=== PATIENT | male | born 1985 | race Caucasian/White ===

== ENCOUNTER 2018-02-18 16:46 | Emergency (ER) | payer BC ==
[2018-02-18] MEDS ORDERED: NS 0.9% 1000 ML* 1,000 ML IV ONE (17:08)
--- NOTE | 2018-02-18 17:14 | ED ---
Neurological HPI - HPI Summary HPI Summary: This is Taj Sullivan, documenting for attending Aj Lira MD. Pt is a 32 y/o M who presents to the ED for weakness of left eyelid. 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 He started seeing Dr. Danielson last week for his blackouts that have been happening for approximately 15 years. The blackout episodes do not cause him to fall or trip. Notes that left side of forehead is flat. Doesnt take any medications. Smokes a pack a week. Drinks a 6 pack a week. Last year he was bit by several ticks, but claims he hasnt been bit this year. - History of Current Complaint Chief Complaint: EDWeakness Stated Complaint: SYNCOPE/LT EYE WEAKNESS Hx Obtained From: Patient Onset/Duration: Still Present Current Severity: None - 0/10 Pain Intensity: 0 Pain Scale Used: 0-10 Numeric Character: Weak - weakness of left eyelid - Allergy/Home Medications Allergies/Adverse Reactions: Allergies Allergy/AdvReac Type Severity Reaction Status Date / Time No Known Allergies Allergy Verified 06/12/16 19:21 Home Medications: Home Medications NK [No Home Medications Reported] 02/18/18 [History Confirmed 02/18/18] PMH/Surg Hx/FS Hx/Imm Hx Endocrine/Hematology History: Denies: Hx Anticoagulant Therapy, Hx Diabetes, Hx Thyroid Disease Cardiovascular History: Denies: Hx Congestive Heart Failure, Hx Deep Vein Thrombosis, Hx Hypertension , Hx Myocardial Infarction, Hx Pacemaker/ICD Respiratory History: Denies: Hx Asthma, Hx Chronic Obstructive Pulmonary Disease (COPD), Hx Lung Cancer, Hx Pneumonia, Hx Pulmonary Embolism GI History: Denies: Hx Gall Bladder Disease, Hx Gastrointestinal Bleed, Hx Ulcer, Hx Urosepsis History: Denies: Hx Kidney Stones, Hx Renal Disease Neurological History: Denies: Hx Dementia, Hx Migraine, Hx Seizures, Hx Transient Ischemic Attacks (TIA) Psychiatric History: Denies: Hx Anxiety, Hx Depression, Hx Schizophrenia, Hx Bipolar Disorder Infectious Disease History: No Infectious Disease History: Denies: Traveled Outside the [place] in Last 30 Days - Family History Known Family History: Positive: Cardiac Disease, Hypertension - Social History Alcohol Use: Occasionally Alcohol Amount: Sunday and Sunday Substance Use Type: Reports: Marijuana Substance Use Comment - Amount & Last Used: occasional use Smoking Status (MU): Heavy Every Day Tobacco Smoker Type: Cigarettes Amount Used/How Often: 1/2 pack daily Review of Systems Positive: Other - weakness of left eyelid Positive: Syncope - has been suffering from blackouts where he "loses time" for 15 years, had 8 episodes just today All Other Systems Reviewed And Are Negative: Yes Physical Exam - Summary Physical Exam Summary: Appearance: Well appearing, no pain distress, flattening of forehead Skin: warm, dry, reflects adequate perfusion Head/face: normal Eyes: EOMI, Ptosis of the left eyelid. ENT: normal Neck: supple, non-tender Respiratory: CTA, breath sounds present Cardiovascular: RRR, pulses symmetrical Abdomen: non-tender, soft Bowel Sounds: present Musculoskeletal: normal, strength/ROM intact Neuro: normal, no facial asymmetry, sensory motor intact, A&Ox3 Triage Information Reviewed: Yes Vital Signs On Initial Exam: Initial Vitals Temp Pulse Resp BP Pulse Ox 99 F 60 16 157/67 99 02/18/18 16:53 02/18/18 16:53 02/18/18 16:53 02/18/18 16:53 02/18/18 16:53 Vital Signs Reviewed: Yes - [place] Coma Scale Best Eye Response: 4 - Spontaneous Best Motor Response: 6 - Obeys Commands Best Verbal Response: 5 - Oriented Coma Scale Total: 15 Diagnostics - Vital Signs Vital Signs Temp Pulse Resp BP Pulse Ox 02/18/18 16:53 99 F 60 16 157/67 99 - Laboratory Result Diagrams: 02/18/18 17:22 02/18/18 17:22 Lab Statement: Any lab studies that have been ordered have been reviewed, and results considered in the medical decision making process. - CT Brain CT CT Interpretation Completed By: Radiologist - Impression: Negative examination. ED Physician reviewed this report. - EKG 17:21 Cardiac Rate: NL - 79 bpm EKG Rhythm: Sinus Rhythm ST Segment: Normal EKG Interpretation: Short NH w/o delta wave, nomal axis NIH Scale - NIH Scale Level of Consciousness: Alert/Keenly Responsive Ask Patient the Month and His/Her Age: Both Correct Ask Pt to Open/Close Eyes and Land Surveyor Assistant/Release Non-Paretic Hand: Both Correctly Best Gaze (Only Horizontal Eye Movement): Normal Visual Field Testing: No Visual Loss Facial Paresis-Pt to Smile & Close Eyes or Grimace Symmetry: Minor Paralysis Motor Function - Right Arm: No Drift-Holds 10 Seconds Motor Function - Left Arm: No Drift-Holds 10 Seconds Motor Function - Right Leg: No Drift-Holds 10 Seconds Motor Function - Left Leg: No Drift-Holds 10 Seconds Limb Ataxia-Must be out of Proportion to Weakness Present: Absent Sensory (Use Pinprick to Test Arms/Legs/Trunk/Face): Normal Best Language (Describe Picture, Name Items): No Aphasia Dysarthria (Read Several Words): Normal Extinction and Inattention: No Abnormality Total Score: 1 Course/Dx - Course Course Of Treatment: Patient with "black out" episodes where he loses time but does not lose consciousness or fall. He also has had minor headache and also now is experiencing some lid lag or ptosis of the left upper lid. There is however flattening of the forehead ridges on that side. There is no smile asymmetry however. He has some dryness of the eye but no anhidrosis or myosis. A CT is negative. Consult was made with neurology who suggested a CT angiogram. She however saw the patient prior and agrees that his exam isn't consistent and likely volitional. His ptosis does not go along with a Ramirez's palsy and he has no other hallmarks of Maggie syndrome. There is no definite third nerve palsy. Neurology evaluated the patient will have him follow-up with his outpatient neurologist for scheduled EEG and MRI. She feels that this is functional. Patient does have a history of PTSD, etc. - Differential Dx Differential Diagnoses Neuro: Positive: Other - Maggie syndrome, Ramirez's palsy, TIA/stroke, conversion disorder - Diagnoses Provider Diagnoses: Headache, Ptosis, Blackout, Conversion disorder - Physician Notifications Discussed Care Of Patient With: Umu Fontana - she is going to see him and wants a CTA Time Discussed With Above Provider: 18:10 Discharge - Sign-Out/Discharge Documenting (check all that apply): Patient Departure - Discharge - Discharge Plan Condition: Improved Disposition: HOME Patient Education Materials: Acute Headache (ED), Ptosis (ED) Referrals: Marbin Danielson MD [Medical Doctor] - Rigoberto Mcgarry MD [Primary Care Provider] - Additional Instructions: Stay well-hydrated. Call Dr. Danielson to follow-up first thing tomorrow. He should have outpatient EEG, MRI as scheduled by Dr. Danielson. Return if worse, new symptoms or other concerns as discussed. - Billing Disposition and Condition Condition: IMPROVED Disposition: Home
--- OUTSIDE RECORDS SUMMARY | 2018-02-18 17:25 | XMS REPORT ---
:1985 External Reference #:[id number] Author Organization [facility] Address [address] [place] [address] Phone [phone] Care Team Providers Name Role Phone Rigoberto Mcgarry MD Primary Care Physician Unavailable Payers Type Date Identification Numbers Payment Provider Subscriber Commercial Policy Number: [id number] [employer] Michelet Dejesus PayID: [id number] [address] [address] [place] [address] Problems Date Description Provider Status Onset: 12/21/2017 Obstructive sleep apnea Sravani Ngo DNP, RN, Active syndrome 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 Active Onset: 02/14/2018 Seizure Enoch Danielson M.D. 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 Cigarette Use current cigarette smoker ETOH Use Currently consumes alcohol Smoking Patient is a current smoker, smokes every day Recreational Drug Use Regularly uses Marijuana Smoking Light tobacco smoker (10 or 1-2 per day fewer cigarettes/day) Daily Caffeine Consumes on average 1 cup of In the morning regular coffee per day Exercise Type/Frequency Exercises regularly Physically demanding job Allergies, Adverse Reactions, Alerts Date Description Reaction Status Severity Comments 10/30/2017 NKDA active Medications Medication Date Status Form Strength Qnty SIG Indications Ordering Provider No Active 10/30/2017 Active Aleyda Medications MD Mack Vital Signs Date Vital Result Comment 02/14/2018 Height 70 inches 5'10" Weight 180.00 lb Heart Rate 76 /min BP Systolic 112 mmHg BP Diastolic 78 mmHg BMI (Body Mass Index) 25.8 kg/m2 12/21/2017 Height 70 inches 5'10" Weight 179.50 lb Heart Rate 60 /min BP Systolic Sitting 114 mmHg Lue reg cuff BP Diastolic Sitting 84 mmHg Lue reg cuff Respiratory Rate 16 /min O2 % BldC Oximetry 98 % On Ra BMI (Body Mass Index) 25.8 kg/m2 10/30/2017 Height 70 inches 5'10" Weight 180.00 lb Heart Rate 72 /min BP Systolic Standing 142 mmHg Rue regular cuff BP Diastolic Standing 90 mmHg Rue regular cuff Respiratory Rate 16 /min O2 % BldC Oximetry 97 % BMI (Body Mass Index) 25.8 kg/m2 Neck Circumference in inches 14.5 Results Description No Information Procedures Date CPT Code Description Status 12/17/2017 98547 Polysomnography Sleep Staging 4+ Parameters Completed Encounters Type Date Location Provider CPT E/M Dx Office Visit 12/21/2017 Pul[facility]ology [facility] Sleep Sravani Ngo, [address] G47.33 8:30a [facility] ROBERT RN, FOOD SERVICE SUPERVISOR-BC G47.53 G47.14 F17.210 Office Visit 10/30/2017 7:30a [facility] [address] G47.9 [facility] G47.50 Plan of Care Future Appointment(s):03/18/2018 4:00 pm - Enoch Danielson M.D. at [facility]02/28/2018 8:00 am - Sravani Ngo DNP, RN, FOOD SERVICE SUPERVISOR- BC at [facility]02/14/2018 - Enoch Danielson M.D.R51 HeadacheFollow up:Follow up 4 weeksRecommendations:Keep a headache huehqrrgY34.33 Obstructive sleep apnea (adult) (pediatric)G47.53 Recurrent isolated sleep netvfjsggY11.9 Unspecified convulsionsNew Orders:EEG, GynucjpM76.0 Cerebral cystsNew Xrays:MRI Brain W/Wo
[2018-02-18 17:31] LABS: ABS Basophils 0 10^3/ul (0-0.2); ABS Eosinophils 0.1 10^3/ul (0-0.6); ABS Lymphocytes 1.3 10^3/ul (1.0-4.8); ABS Monocytes 0.4 10^3/ul (0-0.8); ABS Neutrophils 3.6 10^3/ul (1.5-7.7); ABS Nucleated RBC 0 10^3/ul; Eosinophil % 1.9 % (0-6); Hematocrit 49 % (42-52); Hemoglobin 16.4 g/dl (14.0-18.0); Lymphocyte % 24.4 % (25-47); Mean Corpuscular HGB Conc 34 g/dl (31-36); Mean Corpuscular Hemoglobin 30 pg (27-31); Mean Corpuscular Volume 89 fL (80-94); Mean Platelet Volume 9.1 um3 (7.4-10.4); Nucleated Red Blood Cells % 0.1; Platelet Count 157 10^3/ul (150-450); Red Blood Count 5.49 10^6/ul (4.00-5.40); Red Cell Distribution Width 14 % (10.5-15); White Blood Count 5.5 10^3/ul (3.5-10.8)
--- NOTE | 2018-02-18 17:44 | RAD ---
INDICATION: Ramirez's palsy COMPARISON: None TECHNIQUE: Noncontrast axial source images were acquired from the skull base to the vertex. FINDINGS: Ventricles/sulci: The ventricles and cisterns are normal in size and configuration for age. Brain parenchyma: There is no focal parenchymal finding, evidence of intracranial mass, or intracranial mass effect. Intracranial hemorrhage:None. Extra-axial spaces: There are no abnormal extra axial fluid collections or evidence of extra-axial mass. Calvarium: There is no calvarial fracture or other calvarial abnormality. Scalp: There is no evidence of scalp or extracalvarial soft tissue abnormality. Paranasal sinuses/mastoid: The paranasal sinuses and mastoid air cells are clear. Other: None. IMPRESSION: NEGATIVE EXAMINATION
[2018-02-18 17:49] LABS: EGFR Non-African American 105.8 (>60)
[2018-02-18] MEDS ORDERED: Iohexol 350* (CONTRAST) 500 ML MDV IV ONE (18:22)
[2018-02-18 19:51] VITALS: BP 131/77
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
== END 2018-02-18 19:51 | disposition home or self-care (01) ==
LOC: ED 16:46
DX: H02.402 Unspecified ptosis of left eyelid (principal); R51 Headache; F44.9 Dissociative and conversion disorder, unspecified; F12.10 Cannabis abuse, uncomplicated; F17.210 Nicotine dependence, cigarettes, uncomplicated; Z86.59 Personal history of other mental and behavioral disorders
CPT/HCPCS: 36415; 70450; 80053; 85025; 86140; 86618; 93005; 99282

== ENCOUNTER 2018-03-11 11:12 | Emergency (ER) | payer BC ==
[2018-03-11 11:30] VITALS: BP 137/86
--- NOTE | 2018-03-11 12:09 | UC ---
Upper Extremity HPI - HPI Summary HPI Summary: [facility] is [facility] for attending Den Perkins MD. Pt is a 32 y/o M c/o RUE pain s/p trauma onset ~5 hours ago. Pain rated a 9/10 is localized around the R forearm and elbow, described as achy, sharp and having a warm feeling, per comp. assessment. Assoc. Sx: RUE pain, numbness, tingling, loss of feeling, decreased ROM. Denies: Neck/shoulder pain. He reports being at work where they were cutting a tree when a limb shot out at him. He shielded himself from the flying object with his R arm, in which he obtained R associated Sx above. - History of Current Complaint Chief Complaint: UCUpperExtremity Stated Complaint: R ARM INJURY Time Seen by Provider: 03/11/18 11:49 Hx Obtained From: Patient Onset/Duration: Sudden Onset, Lasting Hours, Still Present Severity Initially: Severe Severity Currently: Severe Pain Intensity: 9 Pain Scale Used: 0-10 Numeric Location Of Pain: Is Diffuse - R forearm/elbow Aggravating Factor(s): Internal/External Rotation Alleviating Factor(s): Nothing Associated Signs And Symptoms: Positive: Swelling - Allergies/Home Medications Allergies/Adverse Reactions: Allergies Allergy/AdvReac Type Severity Reaction Status Date / Time No Known Allergies Allergy Verified 03/11/18 11:25 PMH/Surg Hx/FS Hx/Imm Hx Other Endocrine History: NEG: DM Other Cardiovascular History: NEG: CAD, HTN Other History Of: Negative For: HIV, Hepatitis B, Hepatitis C, Anticoagulant Therapy - Surgical History Surgical History: Yes Surgery Procedure, Year, and Place: WISDOM TEETH - Family History Known Family History: Positive: Cardiac Disease, Other - POS: Hypotension - Social History Occupation: Employed Full-time Lives: With Family Alcohol Use: Occasionally Alcohol Amount: Sunday and Sunday: 6-12 drinks per week Substance Use Type: Marijuana Substance Use Comment - Amount & Last Used: occasional use Smoking Status (MU): Heavy Every Day Tobacco Smoker Type: Cigarettes Amount Used/How Often: 1 pack per week Review of Systems Musculoskeletal: Decreased ROM, Other: - RUE pain Neurological: Weakness - RUE, Numbness - RUE All Other Systems Reviewed And Are Negative: Yes Physical Exam - Summary Physical Exam Summary: General: well-appearing, no pain distress Skin: warm, color reflects adequate perfusion, dry Head: normal Eyes: EOMI, SANCHO ENT: normal Neck: supple, nontender Respiratory: CTA, breath sounds present Cardiovascular: RRR Abdomen: soft, nontender Bowel: present Musculoskeletal: R shoulder HIRA; R elbow decreased ROM, TTP. Elbow clicks with rotation. Has been keeping arm at 90 degree angle. Neurological: sensory/motor intact, A&O x3 Psychological: affect/mood appropriate Triage Information Reviewed: Yes Vital Signs: Initial Vital Signs Temp 98.4 F 03/11/18 11:25 Pulse 78 03/11/18 11:25 Resp 18 03/11/18 11:25 BP 137/86 03/11/18 11:25 Pulse Ox 98 03/11/18 11:25 Vital Signs Reviewed: Yes Diagnostics - Radiology Elbow XR Xray Interpretation: No Acute Changes - IMPRESSION: No fraxture of the elbow noted. Radiology Interpretation Completed By: Radiologist - Report has been reviewed by provider Upper Extremity Course/Dx - Course Course Of Treatment: DISCUSSED X-RAY RESULTS WITH THE PATIENT. DISCUSSED NEED FOR FOLLOW UP IF NOT COMPLETELY IMPROVED. F/U PMD OR ORTHOPEDICS. - Differential Dx/Diagnosis Provider Diagnoses: RIGHT ELBOW CONTUSION Discharge - Sign-Out/Discharge Documenting (check all that apply): Patient Departure - Discharge Plan Condition: Stable Disposition: HOME Prescriptions: HYDROcodone/ACETAMIN 5-325 MG* [[place] 5-325 TAB*] 1 tab PO Q4H PRN #20 tab MDD 6 PRN Reason: Pain Patient Education Materials: Contusion in Adults (ED), Elbow Sprain (ED) Referrals: Michelet Almanza MD [Medical Doctor] - Rigoberto Mcgarry MD [Primary Care Provider] - Additional Instructions: FOLLOW UP WITH YOUR PRIMARY CARE DOCTOR OR ORTHOPEDICS, DR ALMANZA, IF NOT COMPLETELY IMPROVED. GET RECHECKED FOR ANY WORSENING OF YOUR CONDITION OR QUESTIONS OR CONCERNS. - Billing Disposition and Condition Condition: STABLE Disposition: Home
--- NOTE | 2018-03-11 13:20 | RAD ---
INDICATION: RIGHT elbow and ulna pain and swelling following injury. COMPARISON: No relevant prior exams available on the [facility] PACS for comparison. TECHNIQUE: AP, lateral, and oblique views RIGHT elbow. REPORT AND IMPRESSION: #. Normal articular alignment. #. Negative for fat pad displacement to indicate effusion. #. No cortical disruption or suspicious trabecular irregularity to suggest fracture. #. Mild dorsal and medial soft tissue swelling.
== END 2018-03-11 14:05 | disposition home or self-care (01) ==
LOC: UCEAST 11:12
DX: S50.01XA Contusion of right elbow, initial encounter (principal); W22.8XXA Striking against or struck by other objects, initial encounter; Y93.89 Activity, other specified; Y92.89 Other specified places as the place of occurrence of the external cause; Y99.0 Civilian activity done for income or pay; Z82.49 Family history of ischemic heart disease and other diseases of the circulatory system; F17.210 Nicotine dependence, cigarettes, uncomplicated
CPT/HCPCS: 99213; G0463

== ENCOUNTER 2018-03-14 17:07 | Emergency (ER) | payer BC ==
[2018-03-14 17:20] VITALS: BP 142/84
--- NOTE | 2018-03-14 18:28 | UC ---
Lower Extremity/Ankle HPI - HPI Summary HPI Summary: 32 year old male presents with complaints of right great toe pain, redness, swelling, and purulent drainage. States approximately 2 weeks ago he stubbed his toe causing a fracture to the lateral aspect of the toenail. About 1 week later the fractured part of the nail became loose and he removed it. 4 days ago started with pain with progressively worsening redness and swelling to the lateral nail fold. 2 days ago noted purulent drainage. Denies fever or chills. - History of Current Complaint Chief Complaint: UCLowerExtremity Stated Complaint: RIGHT GREAT TOE CONCERN Time Seen by Provider: 03/14/18 18:04 Hx Obtained From: Patient Onset/Duration: Gradual Onset Severity Initially: Mild Severity Currently: Moderate Pain Intensity: 6 Aggravating Factor(s): Ambulation Alleviating Factor(s): Rest, Elevation Able to Bear Weight: Yes - Allergies/Home Medications Allergies/Adverse Reactions: Allergies Allergy/AdvReac Type Severity Reaction Status Date / Time No Known Allergies Allergy Verified 03/14/18 17:20 PMH/Surg Hx/FS Hx/Imm Hx - Additional Past Medical History Additional PMH: non-contributory Other History Of: Negative For: HIV, Hepatitis B, Hepatitis C, Anticoagulant Therapy - Surgical History Surgical History: Yes Surgery Procedure, Year, and Place: WISDOM TEETH - Family History Known Family History: Positive: Cardiac Disease, Hypertension, Other - POS: Hypotension - Social History Occupation: Employed Full-time Lives: With Family Alcohol Use: Occasionally Alcohol Amount: Sunday and Sunday: 6-12 drinks per week Substance Use Type: Marijuana Substance Use Comment - Amount & Last Used: occasional use Smoking Status (MU): Heavy Every Day Tobacco Smoker Type: Cigarettes Amount Used/How Often: 1 pack per week Review of Systems Constitutional: Negative Skin: Other - see HPI Motor: Negative Neurovascular: Negative Musculoskeletal: Negative Is Patient Immunocompromised?: No All Other Systems Reviewed And Are Negative: Yes Physical Exam Triage Information Reviewed: Yes Appearance: Well-Appearing, No Pain Distress, Well-Nourished Vital Signs: Initial Vital Signs Temp 98.2 F 03/14/18 17:17 Pulse 75 03/14/18 17:17 Resp 16 03/14/18 17:17 BP 142/84 03/14/18 17:17 Pulse Ox 99 03/14/18 17:17 Respiratory: Positive: No respiratory distress Cardiovascular: Positive: Brisk Capillary Refill Musculoskeletal Exam: Normal Neurological: Positive: Other: - sensation intact Skin: Positive: Other - Redness, swelling, and small amount of purulent drainage noted to lateral nail fold of the right great toe. There is a nail fracture present with a portion of the lateral nail missing however cannot assess if there is any remaining nail due to inflammation. No fluctuance noted. Lower Extremity Course/Dx - Course Course Of Treatment: 32 year old male presents with 4 day history of right great toe pain, redness, and swelling s/p injury 2 weeks ago. The area of infection was actively draining without fluctuance. I was not able to determine if any of the missing nail was still present due to the inflammation. Will treat the infection with Keflex 500 mg TID x 7 days and have patient follow up with podiatry for re-evaluation after the inflammation has subsided. Patient verbalizes understanding and agrees with POC.. - Differential Dx/Diagnosis Provider Diagnoses: Infected ingrown toenail right great toe Discharge - Sign-Out/Discharge Documenting (check all that apply): Patient Departure - Discharge Plan Condition: Stable Disposition: HOME Prescriptions: cephALEXin [Keflex] 500 mg PO TID #21 capsule Patient Education Materials: Ingrown Nail (ED) Referrals: Rigoberto Mcgarry MD [Primary Care Provider] - Juve CONNER,Bennett Phelps [Doctor of Podiatric Medicine] - (Call tomorrow to schedule an appointment) Additional Instructions: Start taking Keflex (cephalexin) 1 capsule 3 times a day for the next 7 days. You need to soak your toe in warm water and Epsom salts 3 times a day. I provided you a referral to Dr. An, podiatry. Please call tomorrow to schedule an appointment for evaluation and treatment. Seek medical attention if you develop fever greater than 100.5 F, had increased pain, redness that spreads, increased swelling, or any worsening of symptoms. - Billing Disposition and Condition Condition: STABLE Disposition: Home
== END 2018-03-14 18:37 | disposition home or self-care (01) ==
LOC: UCCORT 17:07
DX: L60.0 Ingrowing nail (principal); F17.210 Nicotine dependence, cigarettes, uncomplicated
CPT/HCPCS: 99212; G0463